=== PATIENT | male | born 1990 | race Caucasian/White ===

== ENCOUNTER 2016-09-27 19:05 | Emergency (ER) | payer OTHER ==
[~2016-09-27] VITALS: Ht 177.8 cm; Wt 71.0 kg
[2016-09-27 19:12] VITALS: Ht 177.8 cm; Wt 71.0 kg
--- NOTE | 2016-09-27 19:28 | ERD ---
ER Documentation Chief Complaint Date/Time DATE: 09/27/16 TIME: 19:27 Chief Complaint mwed refill = topamax trileptal HPI This is a 26-year-old male who presents to the emergency room for a medication refill of his Topamax 200 mg at night, and his Trileptal 1200 mg at nighttime. The patient states that he has not been able to get into his normal primary care physician because they do not accept his insurance anymore. The patient is a 89 seizure activity and states he has not had his medication in 3 days ROS All systems reviewed and are negative except as per history of present illness. Allergies Allergies: Coded Allergies: No Known Allergy (Unverified , 09/27/16) Physical Exam Vitals Vital Signs Date Time Temp Pulse Resp B/P Pulse Ox O2 Delivery O2 Flow Rate FiO2 09/27/16 19:12 97.7 70 20 129/66 98 Physical Exam Const: No acute distress Head: Atraumatic Eyes: Normal Conjunctiva ENT: Normal External Ears, Nose and Mouth. Neck: Full range of motion..~ No meningismus. Resp: Clear to auscultation bilaterally Cardio: Regular rate and rhythm, no murmurs Abd: Soft, non tender, non distended. Normal bowel sounds Skin: No petechiae or rashes Back: No midline or flank tenderness Ext: No cyanosis, or edema Neur: Awake and alert Psych: Normal Mood and Affect Procedures/MDM This 26-year-old male presents to the emergency room for med refill of Trileptal and Topamax. I evaluated this patient he had no signs of a seizure activity, he was alert and oriented to person place and time. The patient will be given a prescription for Trileptal 1200 mg at nighttime, Topamax 200 mg at nighttime. Departure Diagnosis: Primary Impression: Encounter for medication refill Additional Impression: Seizure disorder Condition: Stable CARINA VILLAGOMEZ DO September 27, 2016 19:28
[2016-09-27] MEDS ORDERED: OXCA600T3 PO (19:29)
[2016-09-27] MEDS ORDERED: TOPI100T42 PO (19:29)
== END 2016-09-27 19:49 | disposition home or self-care (01) ==
LOC: FTE 19:05
DX: Z76.0 Encounter for issue of repeat prescription (principal); G40.909 Epilepsy, unspecified, not intractable, without status epilepticus
CPT/HCPCS: 99281